=== PATIENT | male | born 1955 | race Caucasian/White ===

== ENCOUNTER → 2016-11-02 | Day surgery (SDC) | payer OTHER ==
[2016-10-24 12:11] VITALS: Ht 182.9 cm; Wt 159.1 kg
[~2016-11-02] VITALS: Ht 182.9 cm; Wt 159.1 kg
[~2016-11-02] MED LIST: ALFU10TA2 PO; ATOR-24 PO; CARV3.122 PO; CHOL1000 PO; FRS/40 PO; KETAMINE HCL INJ 50 MG/ML 10 ML VIAL ONE; LEVO125T5 PO; LOSA1TAB PO; MIDAZOLAM HCL 1 MG/ML 2ML VIAL ONE; OMEG100046 PO; ONDANSETRON INJ 2 MG/ML 2 ML VIAL IV PRN; PROPOFOL IV EMULSION 10 MG/ML 20 ML VIAL IV ONE; RIVA1TAB4 PO; SPIR25TA89 PO
--- NOTE | 2016-11-02 11:04 | Endo History and Physical ---
History & Physical Date of Service: Nov 02, 2016. Chief Complaint: Screening Referring Physician: [facility] History of Present Illness Patient for CRC screening, no symptoms, last exam about 10 years ago. Past Surgical History Hx Cardiac Surgery: Yes (MULTIPLE HEART CATHS, NO STENTS) Hx Internal Defibrillator: No Hx Pacemaker: Yes (PLACED X2 AND REMOVED) Hx Abdominal Surgery: No Hx of Implantable Prosthesis: No Hx Post-Op Nausea and Vomiting: No Hx Cancer Surgery: No Hx Thoracic Surgery: No Hx Orthopedic: Yes (LT ANKLE SURGERY WITH HARDWARE) Hx Urinary Tract Surgery: Yes (UNDESCENDED TESTICLE) Family History Polyp Social History Smoking Status: Current Some Day Smoker Hx Substance Use: No Hx Alcohol Use: Yes (OCCASIONAL) Allergies Coded Allergies: No Known Allergies (Verified , 11/02/16) Current Medications Reported Home Medications Medications Dose Route/Sig Max Daily Dose Days Date Category Cozaar (Losartan Potassium) 25 Mg Tab 25 Mg PO QAM 10/24/16 Reported [place] 3 ([place]-3 Fatty Acids) 1 Cap Cap 1 Tab PO QAM 10/24/16 Reported Vitamin D3 (Cholecalciferol) 1,000 Unit Tab 1 Tab PO QAM 10/24/16 Reported Uroxatral (Alfuzosin HCl) 10 Mg Tab 10 Mg PO QAM 10/24/16 Reported Aldactone (Spironolactone) 25 Mg Tab 25 Mg PO QAM 10/24/16 Reported Xarelto (Rivaroxaban) 20 Mg Tab 20 Mg PO QAM 10/24/16 Reported Levothyroxine Sodium 125 Mcg Tab 1 Tab PO QAM 10/24/16 Reported Lasix (Furosemide) 40 Mg Tab 40 Mg PO QAM 10/24/16 Reported Coreg (Carvedilol) 3.125 Mg Tab 3.125 Mg PO QAM 10/24/16 Reported Lipitor (Atorvastatin Calcium) 40 Mg Tab 40 Mg PO QAM 10/24/16 Reported Vital Signs Weight (Kilograms): 159.09 Height (Feet): 6 Height (Inches): 0 Date Time Temp Pulse Resp B/P Pulse Ox O2 Delivery O2 Flow Rate FiO2 11/02/16 10:38 36.6 65 20 161/78 20 Room Air Physical Exam General Appearance: no apparent distress Respiratory/Chest: Auscultation: breath sounds normal Cardiovascular: Heart Auscultation: RRR Abdomen: Inspection & Palpation: soft Liver: non-tender Assessment and Plan Colonoscopy today for cRC screening. Risks are bleeding, infection, perforation , pain, and missed polyps.
--- NOTE | 2016-11-02 11:33 | Discharge Instructions ---
Endoscopy Patient Instructions Date / Procedure(s) Performed Nov 02, 2016. Colonoscopy Allergy Information Coded Allergies: No Known Allergies (Verified , 11/02/16) Discharge Date / Findings Nov 02, 2016. Hemorrrhoids Diverticulosis of the sigmoid colon Numerous colon polyps Medication Instructions Stopped Medication(s): Xeralto 20 mg Restart Stopped Medication(s): Reported Home Medications Medications Dose Route/Sig Max Daily Dose Days Date Category Cozaar (Losartan Potassium) 25 Mg Tab 25 Mg PO QAM 10/24/16 Reported [place] 3 ([place]-3 Fatty Acids) 1 Cap Cap 1 Tab PO QAM 10/24/16 Reported Vitamin D3 (Cholecalciferol) 1,000 Unit Tab 1 Tab PO QAM 10/24/16 Reported Uroxatral (Alfuzosin HCl) 10 Mg Tab 10 Mg PO QAM 10/24/16 Reported Aldactone (Spironolactone) 25 Mg Tab 25 Mg PO QAM 10/24/16 Reported Xarelto (Rivaroxaban) 20 Mg Tab 20 Mg PO QAM 10/24/16 Reported Levothyroxine Sodium 125 Mcg Tab 1 Tab PO QAM 10/24/16 Reported Lasix (Furosemide) 40 Mg Tab 40 Mg PO QAM 10/24/16 Reported Coreg (Carvedilol) 3.125 Mg Tab 3.125 Mg PO QAM 10/24/16 Reported Lipitor (Atorvastatin Calcium) 40 Mg Tab 40 Mg PO QAM 10/24/16 Reported Provider Instructions Activity Restrictions - No exercising or heavy lifting for 24 hours. - Do not drink alcohol the day of the procedure. - Do not drive a car or operate machinery until the day after the procedure. - Do not make any important decisions or sign important papers in 24 hours after the procedure. Following Day: - Return to full activity which may include returning to work/school. Diet Start your diet with liquids and light foods (jello, soup, juice, toast). Then eat your usual diet if not nauseated. Treatment For Common After Affects For mild abdominal pain, bloating, or excessive gas: - Rest - Eat lightly - Lie on right side Follow-Up Information Repeat colonoscopy in 3 years Await pathogy results Restart Xarelto in 3 days. Anesthesia Information What You Should Know You have had a procedure that required some medicine to reduce anxiety and discomfort. This treatment is called moderate sedation. After receiving the treatment, you may be sleepy, but you will be able to breathe on your own. The effects of the treatment may last for several hours. Follow these instructions along with Activity/Diet recommendations noted above: * Do NOT do anything where dizziness or clumsiness would be dangerous. * Rest quietly at home today, then you can be up and about tomorrow. * Have a responsible person stay with you the rest of today. * You may have had an I.V. today. If so, you may take the dressing off later today. Recommendations Call your doctor if: * Trouble breathing * Continuous vomiting for more than 24 hours * Temperature above 101 degrees * Severe abdominal pain or bloating * Pain not relieved by pain medicine ordered * There is increased drainage or redness from any incision * A large amount of rectal bleeding greater than 2-3 tablespoons. (If you had a polyp/s removed or have hemorrhoids, a small amount of blood - from the rectum is to be expected.) * You have any unanswered questions or concerns. IN THE EVENT OF A SERIOUS EMERGENCY, GO TO THE NEAREST EMERGENCY ROOM Your discharge instructions were prepared by provider Kai Prince. Patient Instructions Signature Page Arthur Carbajal Patient (or Guardian) Signature/Date: I have read and understand the instructions given to me by my caregivers. Caregiver/RN/Doctor Signature/Date: The above-named patient and/or guardian has received patient instructions on this date. + Original Patient Signature Page (only) stays with chart. Please make copy for patient.
--- NOTE | 2016-11-02 11:41 | GI REPORT ---
Procedure Date: 11/02/2016 10:51 AM Procedure: Colonoscopy Indications: Screening for colorectal malignant neoplasm Medicines: Monitored Anesthesia Care Complications: No immediate complications. Estimated blood loss: Minimal. Estimated Blood Loss: Estimated blood loss was minimal. Procedure: Pre-Anesthesia Assessment: - Prior to the procedure, a History and Physical was performed, and patient medications, allergies and sensitivities were reviewed. The patient's tolerance of previous anesthesia was reviewed. - The risks and benefits of the procedure and the sedation options and risks were discussed with the patient. All questions were answered and informed consent was obtained. - Patient identification and proposed procedure were verified prior to the procedure by the physician, the nurse and the a&p mechanic. The procedure was verified in the procedure room. - Pre-procedure physical examination revealed no contraindications to sedation. - ASA Grade Assessment: IV - A patient with severe systemic disease that is a constant threat to life. - After reviewing the risks and benefits, the patient was deemed in satisfactory condition to undergo the procedure. - The anesthesia plan was to use monitored anesthesia care (MAC). - Immediately prior to administration of medications, the patient was re-assessed for adequacy to receive sedatives. - The heart rate, respiratory rate, oxygen saturations, blood pressure, adequacy of pulmonary ventilation, and response to care were monitored throughout the procedure. - The physical status of the patient was re-assessed after the procedure. After I obtained informed consent, the scope was passed under direct vision. Throughout the procedure, the patient's blood pressure, pulse, and oxygen saturations were monitored continuously. The scope was introduced through the anus and advanced to the terminal ileum. The colonoscopy was performed without difficulty. The patient tolerated the procedure well. The quality of the bowel preparation was good. Findings: The digital rectal exam findings include non-thrombosed external hemorrhoids. Pertinent negatives include normal sphincter tone. The terminal ileum appeared normal. Three sessile polyps were found in the ascending colon. The polyps were 4 to 6 mm in size. These polyps were removed with a cold snare. Resection and retrieval were complete. Estimated blood loss was minimal. Two sessile polyps were found in the transverse colon. The polyps were 4 to 6 mm in size. These polyps were removed with a cold snare. Resection and retrieval were complete. Estimated blood loss was minimal. A 8 mm polyp was found in the transverse colon. The polyp was sessile. The polyp was removed with a hot snare. Resection and retrieval were complete. Estimated blood loss was minimal. Four sessile polyps were found in the descending colon. The polyps were 4 to 6 mm in size. These polyps were removed with a cold snare. Resection and retrieval were complete. Estimated blood loss was minimal. A 8 mm polyp was found in the descending colon. The polyp was sessile. The polyp was removed with a hot snare. Resection and retrieval were complete. Estimated blood loss was minimal. A 5 mm polyp was found in the sigmoid colon. The polyp was sessile. The polyp was removed with a cold snare. Resection and retrieval were complete. Estimated blood loss was minimal. Multiple small-mouthed diverticula were found in the sigmoid colon. Internal hemorrhoids were found during retroflexion. The hemorrhoids were moderate. The exam was otherwise without abnormality. Impression: - Non-thrombosed external hemorrhoids found on digital rectal exam. - The examined portion of the ileum was normal. - Three 4 to 6 mm polyps in the ascending colon, removed with a cold snare. Resected and retrieved. - Two 4 to 6 mm polyps in the transverse colon, removed with a cold snare. Resected and retrieved. - One 8 mm polyp in the transverse colon, removed with a hot snare. Resected and retrieved. - Four 4 to 6 mm polyps in the descending colon, removed with a cold snare. Resected and retrieved. - One 8 mm polyp in the descending colon, removed with a hot snare. Resected and retrieved. - One 5 mm polyp in the sigmoid colon, removed with a cold snare. Resected and retrieved. - Mild diverticulosis in the sigmoid colon. - Internal hemorrhoids. - The examination was otherwise normal. Recommendation: - Discharge patient to home (ambulatory). - Advance diet as tolerated today. - Await pathology results. - Repeat colonoscopy in 3 years for surveillance based on pathology results. Kai Prince D.O. Kai Prince DO 11/02/2016 11:40:03 AM This report has been signed electronically. Note Initiated On: 11/02/2016 10:51 AM I attest to the content of the Intraoperative Record and orders documented therein, exceptions below
[2016-11-02 12:04] VITALS: BP 152/68; PULSE 64; O2SAT 95
--- NOTE | 2016-11-02 13:23 | Anesthesiology Progress Note ---
Anesthesia Post Op Note Date & Time Nov 02, 2016 at 13:22 Vital Signs Vital Signs Past 12 Hours Date Time Temp Pulse Resp B/P Pulse Ox O2 Delivery O2 Flow Rate FiO2 11/02/16 12:04 64 16 152/68 95 Room Air 11/02/16 11:49 69 16 142/74 94 Room Air 11/02/16 11:34 76 16 109/65 91 Room Air 11/02/16 10:38 36.6 65 20 161/78 94 Room Air Notes Mental Status: alert / awake / arousable, participated in evaluation Pt Amnestic to Procedure: Yes Nausea / Vomiting: adequately controlled Pain: adequately controlled Airway Patency, RR, SpO2: stable & adequate BP & HR: stable & adequate Hydration State: stable & adequate Anesthetic Complications: no major complications apparent
== END | disposition home or self-care (01) ==
LOC: C.GI 09:49
PROVIDERS: ATTEND Internal Medicine Gastroenterology
DX: Z12.11 Encounter for screening for malignant neoplasm of colon (principal); D12.2 Benign neoplasm of ascending colon; D12.3 Benign neoplasm of transverse colon; D12.4 Benign neoplasm of descending colon; D12.5 Benign neoplasm of sigmoid colon; K64.9 Unspecified hemorrhoids; K57.30 Diverticulosis of large intestine without perforation or abscess without bleeding; Z87.891 Personal history of nicotine dependence